=== PATIENT | female | born 1950 | race African-American/Black ===

== ENCOUNTER 2016-03-17 10:30 | Outpatient (CLI) | payer MEDICARE, MEDICAID ==
--- NOTE | 2016-03-17 12:42 | RAD ---
PA AND LATERAL VIEWS CHEST: HISTORY: Cough. FINDINGS: Comparison is made to the exam of 03/30/14. The heart is enlarged. The lungs are expanded without focal areas of consolidation, pneumothorax, f rank pulmonary edema, or pleural effusions. There are degenerative changes in the spine. IMPRESSION: No acute process. POS: [facility]
== END 2016-03-17 10:31 | disposition home or self-care (01) ==
LOC: MADRAD 10:30
PROVIDERS: ATTEND Family Medicine
DX: R07.1 Chest pain on breathing (principal); R05 Cough
CPT/HCPCS: 71020

== ENCOUNTER 2016-06-13 11:48 | Outpatient (CLI) | payer MEDICARE, MEDICAID ==
[2016-06-13 12:11] LABS: #Basophils 0.1 thou/uL (0.0-0.2); #Eosinphils 0.2 thou/uL (0.0-0.7); #Lymphocytes 2.7 thou/uL (1.20-3.40); #Monocytes 0.7 thou/uL (0.11-0.59); #Neutrophils 5.4 thou/uL (1.40-6.50); %Eosinophils 1.9 % (0.0-10.0); %Lymphocytes 29.9 % (21.0-51.0); %Monocytes 7.7 % (0.0-10.0); %Neutrophils 59.5 % (42.0-75.0); Hemoglobin 12.6 g/dL (12.0-16.0); Mean Corpuscular Hemoglobin 31.6 pg (27.0-31.0); Mean Corpuscular Volume 95.8 fl (81.0-99.0); Mean Platelet Volume 8.1 fL (7.4-10.4); Platelet Count 236 thou/uL (130-400); RBC Distribution Width 12.1 % (11.5-14.5); Red Blood Cell (RBC) Count 3.99 mill/uL (4.20-5.40)
[2016-06-13 12:22] LABS: Hemoglobin A1c 5.3 % (4.0-6.0)
[2016-06-13 12:24] LABS: ALT (SGPT) 11 U/L (8-55); AST (SGOT) 14 U/L (5-34); Albumin 4.1 g/dL (3.4-4.8); Alkaline Phosphatase 69 U/L (40-150); Anion Gap 16 mmol/L (10-20); BUN (Urea Nitrogen) 19 mg/dL (9.8-20.1); Bilirubin, Total 0.5 mg/dL (0.2-1.2); Calc. Creatinine Clearance 0 mL/min (70-130); Calcium 9.4 mg/dL (7.8-10.44); Carbon Dioxide 24 mmol/L (23-31); Cardiac Risk 2.9 (Less than 4.5); Chloride 107 mmol/L (98-107); Cholesterol 159 mg/dL (< 200 Desired); Estimated GFR-MDRD 45; Globulin 2.9 g/dL (2.4-3.5); Glucose 109 mg/dL (80-115); HDL Cholesterol 55 mg/dL (>60 Neg Risk); LDL Cholesterol, Calculated 86 mg/dL; Potassium 3.8 mmol/L (3.5-5.1); Sodium 143 mmol/L (136-145); Triglycerides 90 mg/dL (Less than 150)
[2016-06-13 13:09] LABS: Free T4 (Free Thyroxine) 1.06 ng/dL (0.70-1.48); Thyroid Stimulating Hormone 2.9607 uIU/mL (0.35-4.94)
== END 2016-06-13 11:49 | disposition home or self-care (01) ==
LOC: MADLAB 11:48
PROVIDERS: ATTEND Family Medicine
DX: E78.5 Hyperlipidemia, unspecified (principal); E11.69 Type 2 diabetes mellitus with other specified complication; N18.9 Chronic kidney disease, unspecified; E03.1 Congenital hypothyroidism without goiter; I15.9 Secondary hypertension, unspecified
CPT/HCPCS: 36415; 80053; 80061; 83036; 84439; 84443; 85025

== ENCOUNTER 2017-03-11 15:43 | Emergency (ER) | payer MEDICARE, MEDICAID ==
[2017-03-11] MEDS ORDERED: Ondansetron ODT 4 MG TAB ONE (16:19)
== END 2017-03-11 16:25 | disposition home or self-care (01) ==
LOC: MADERS 15:43
DX: J11.1 Influenza due to unidentified influenza virus with other respiratory manifestations (principal); I10 Essential (primary) hypertension; E78.00 Pure hypercholesterolemia, unspecified; E03.9 Hypothyroidism, unspecified; E11.9 Type 2 diabetes mellitus without complications; Z86.73 Personal history of transient ischemic attack (TIA), and cerebral infarction without residual deficits; Z79.899 Other long term (current) drug therapy; Z79.84 Long term (current) use of oral hypoglycemic drugs
CPT/HCPCS: 99283; Q0162

== ENCOUNTER 2017-06-25 16:34 | Emergency (ER) | payer MEDICARE, MEDICAID ==
--- NOTE | 2017-06-25 17:36 | RAD ---
RIGHT FEMUR TWO VIEW 06/25/17 HISTORY: Injury. COMPARISON: None. Femur is intact. No acute displaced fracture or malalignment. Mild medial compartment joint space lyndsay rowing. IMPRESSION: No acute displaced fracture or malalignment. Exam is limited due to lack of lateral distal femur view . POS: [facility]
--- NOTE | 2017-06-25 17:41 | RAD ---
RIGHT KNEE FOUR VIEW 06/25/17 HISTORY: Injury. COMPARISON: Radiograph from 2015. FINDINGS: No acute displaced fracture or malalignment. Mild medial compartment joint space narrowing and osteop hyte formation. No significant joint effusion. IMPRESSION: No acute fracture or malalignment. POS: [facility]
[2017-06-25] MEDS ORDERED: traMADol HCl 50 MG TAB ONE (17:50)
== END 2017-06-25 17:55 | disposition home or self-care (01) ==
LOC: MADERS 16:34
DX: S80.01XA Contusion of right knee, initial encounter (principal); I10 Essential (primary) hypertension; E03.9 Hypothyroidism, unspecified; E11.9 Type 2 diabetes mellitus without complications; J30.2 Other seasonal allergic rhinitis; W22.8XXA Striking against or struck by other objects, initial encounter; Z86.73 Personal history of transient ischemic attack (TIA), and cerebral infarction without residual deficits

== ENCOUNTER 2017-12-06 16:14 | Emergency (ER) | payer MEDICARE, MEDICAID ==
--- NOTE | 2017-12-06 18:17 | RAD ---
CHEST TWO VIEWS: History: Cough. Comparison: 03-17-16 FINDINGS: Cardiac silhouette is unremarkable. Pulmonary vasculature upper limits of normal. Mediastinum is midl ine. No confluent airspace consolidation, pneumothorax, or pleural fluid are apparent. IMPRESSION: No active cardiopulmonary abnormalities are demonstrated. POS: [facility]
== END 2017-12-06 18:18 | disposition home or self-care (01) ==
LOC: MADERS 16:14
DX: J06.9 Acute upper respiratory infection, unspecified (principal); I10 Essential (primary) hypertension; E03.9 Hypothyroidism, unspecified; E78.00 Pure hypercholesterolemia, unspecified; E11.9 Type 2 diabetes mellitus without complications; Z86.73 Personal history of transient ischemic attack (TIA), and cerebral infarction without residual deficits; Z79.899 Other long term (current) drug therapy; Z79.84 Long term (current) use of oral hypoglycemic drugs
CPT/HCPCS: 71046; 87804; J7620

== ENCOUNTER 2019-07-08 10:48 | Outpatient (CLI) | payer MEDICARE, MEDICAID ==
[2019-07-08 11:43] LABS: Bilirubin Negative (Negative); Blood, Urine Negative (Negative); Clarity Clear (Clear); Glucose, Urine (Dipstick) Negative (Negative); Leukocyte Negative (Negative); Nitrite Negative (Negative); Protein, Urine (Dipstick) 100 mg/dL (Neg-Trace); Urobilinogen 0.2 mg/dL (Less than 2)
[2019-07-08 11:52] LABS: Bacteria/HPF Rare-Few HPF (None Seen); RBC/HPF 0-3 HPF (0-3); WBC/HPF 0-3 HPF (0-3)
[2019-07-08 11:54] LABS: #Basophils 0.1 thou/uL (0.0-0.2); #Eosinphils 0.2 thou/uL (0.0-0.7); #Lymphocytes 2.7 thou/uL (1.20-3.40); #Monocytes 0.6 thou/uL (0.11-0.59); %Basophils 1.1 % (0.0-1.0); %Eosinophils 2.4 % (0.0-10.0); %Lymphocytes 35.9 % (21.0-51.0); %Monocytes 8.2 % (0.0-10.0); %Neutrophils 52.4 % (42.0-75.0); Hemoglobin 11.4 g/dL (12.0-16.0); Mean Corpuscular HGB CONC 31.2 g/dL (32.0-36.0); Mean Corpuscular Hemoglobin 30.6 pg (27.0-31.0); Mean Platelet Volume 9.1 fL (7.4-10.4); Platelet Count 292 thou/uL (130-400); RBC Distribution Width 12.3 % (11.5-14.5); Red Blood Cell (RBC) Count 3.73 mill/uL (4.20-5.40); White Blood Cell (WBC) Count 7.6 thou/uL (4.8-10.8)
[2019-07-08 11:59] LABS: ALT (SGPT) 13 U/L (8-55); AST (SGOT) 16 U/L (5-34); Albumin 4.1 g/dL (3.4-4.8); Alkaline Phosphatase 77 U/L (40-110); Anion Gap 14 mmol/L (10-20); BUN (Urea Nitrogen) 17 mg/dL (9.8-20.1); Bilirubin, Total 0.5 mg/dL (0.2-1.2); Calc. Creatinine Clearance 0 mL/min (70-130); Calcium 9.4 mg/dL (7.8-10.44); Carbon Dioxide 25 mmol/L (23-31); Cardiac Risk 2.5 (Less than 4.5); Chloride 109 mmol/L (98-107); Cholesterol 141 mg/dl (< 200 Desired); Estimated GFR-MDRD 34; Globulin 3.1 g/dL (2.4-3.5); Glucose 92 mg/dL (80-115); HDL Cholesterol 57 mg/dL (>60 Neg Risk); LDL Cholesterol, Calculated 70 mg/dL; Potassium 4.6 mmol/L (3.5-5.1); Protein, Total 7.2 g/dL (6.0-8.3); Sodium 143 mmol/L (136-145); Triglycerides 69 mg/dL (Less than 150)
[2019-07-08 17:28] LABS: Hemoglobin A1c 5.4 % (4.0-6.0)
== END 2019-07-08 10:49 | disposition home or self-care (01) ==
LOC: MADLAB 10:48
PROVIDERS: ATTEND Physician Assistant Medical
DX: E78.5 Hyperlipidemia, unspecified (principal); E03.1 Congenital hypothyroidism without goiter; I15.9 Secondary hypertension, unspecified; E11.69 Type 2 diabetes mellitus with other specified complication
CPT/HCPCS: 36415; 80050; 80061; 81003; 81015; 83036

== ENCOUNTER 2022-02-21 10:53 | Emergency (ER) | payer MEDICARE, MEDICAID | END 2022-02-21 11:30 | disposition home or self-care (01) | LOC: MADERS 10:53 | DX: L03.115 Cellulitis of right lower limb (principal); I10 Essential (primary) hypertension; E78.00 Pure hypercholesterolemia, unspecified; E03.9 Hypothyroidism, unspecified; E11.9 Type 2 diabetes mellitus without complications; Z86.73 Personal history of transient ischemic attack (TIA), and cerebral infarction without residual deficits | CPT/HCPCS: 99283 ==

== ENCOUNTER 2022-08-20 11:18 | Outpatient (CLI) | payer MEDICARE, MEDICAID ==
[2022-08-20 12:24] LABS: Hemoglobin 8.7 g/dL (12.0-16.0); Mean Corpuscular HGB CONC 31.6 g/dL (32.0-36.0); Mean Corpuscular Hemoglobin 31.4 pg (27.0-31.0); Mean Corpuscular Volume 99.4 fl (78.0-98.0); Mean Platelet Volume 9.9 fL (7.4-10.4); Platelet Count 224 10x3/uL (130-400); RBC Distribution Width 13.8 % (11.5-14.5); Red Blood Cell (RBC) Count 2.79 mill/uL (4.20-5.40)
[2022-08-20 12:29] LABS: Bilirubin Negative (Negative); Blood, Urine Trace (Negative); Clarity Clear (Clear); Glucose, Urine (Dipstick) Negative (Negative); Ketone, Urine Negative (Negative); Leukocyte Negative (Negative); Nitrite Negative (Negative); Protein, Urine (Dipstick) > or equal to 300 mg/dL (Neg-Trace); Urobilinogen 0.2 mg/dL (Less than 2); pH, Urine 6.5 (5.0-9.0)
[2022-08-20 12:41] LABS: Albumin 4.1 g/dL (3.4-4.8); Anion Gap 16 mmol/L (10-20); BUN (Urea Nitrogen) 44 mg/dL (9.8-20.1); BUN/Creatinine Ratio 12.57; Calc. Creatinine Clearance 0 mL/min (70-130); Calcium 7.9 mg/dL (7.8-10.44); Carbon Dioxide 23 mmol/L (23-31); Cardiac Risk 2.5 (Less than 4.5); Chloride 111 mmol/L (98-107); Cholesterol 145 mg/dl (< 200 Desired); Estimated GFR 13; Glucose 91 mg/dL (83-110); HDL Cholesterol 58 mg/dL (>60 Neg Risk); LDL Cholesterol, Calculated 73 mg/dL; Phosphorus 5.4 mg/dL (2.3-4.7); Potassium 4.1 mmol/L (3.5-5.1); Sodium 146 mmol/L (136-145); Triglycerides 72 mg/dL (Less than 150); Uric Acid 9.3 mg/dL (2.6-6.0)
[2022-08-20 17:09] LABS: Creatinine, Urine 73.93 mg/dL (47-110)
[2022-08-20 17:12] LABS: T4 7.04 ug/dL (4.87-11.72)
[2022-08-20 17:13] LABS: Vitamin D, 25 Hydroxy 26.5 ng/ml (> 30.0)
== END 2022-08-20 11:19 | disposition home or self-care (01) ==
LOC: MADRAD 11:18
PROVIDERS: ATTEND Internal Medicine Nephrology
DX: E11.22 Type 2 diabetes mellitus with diabetic chronic kidney disease (principal); I12.9 Hypertensive chronic kidney disease with stage 1 through stage 4 chronic kidney disease, or unspecified chronic kidney disease; N17.9 Acute kidney failure, unspecified; I25.10 Atherosclerotic heart disease of native coronary artery without angina pectoris; E78.5 Hyperlipidemia, unspecified; N18.9 Chronic kidney disease, unspecified; E03.9 Hypothyroidism, unspecified; M10.9 Gout, unspecified; D63.1 Anemia in chronic kidney disease; M17.11 Unilateral primary osteoarthritis, right knee
CPT/HCPCS: 36415; 80061; 80069; 81003; 82306; 82570; 84156; 84436; 84443; 84479; 84550; 85027